=== PATIENT | male | born 1965 | race Two or more races ===

== ENCOUNTER 2024-09-21 07:03 | Day surgery (SDC) | payer OTHER ==
[~2024-09-21] VITALS: Ht 180.3 cm; Wt 117.9 kg
[2024-09-21] VITALS (9 sets, daily range): BP systolic 103–116; BP diastolic 65–71; PULSE 60–65; RESP 11–16; TEMP 98.6; O2SAT 94–96
[~2024-09-21 07:03] MED LIST: AMLO1TAB23 PO; ASPI1TAB19 PO; CLON0.1T PO; HYDR25TA4 PO; LISI40TA16 PO; METO200T42 PO; NITR0.4S29 SL; SPIR50TA5 PO
[2024-09-21] MEDS: IODIXANOL 320MG/ML 100ML BTL IV ONE ×2 (07:28→08:13)
[2024-09-21] MEDS: VERAPAMIL 2.5MG/ML INJ 2ML VIAL IV ONE (07:31)
[2024-09-21] MEDS: LIDOCAINE 2%HCL (LOCAL ANESTH.) INJ 20ML MDV ONE (07:31)
[2024-09-21] MEDS: MIDAZOLAM HCL 2MG/2ML 2ml VIAL (1mg/ml) ONE (07:31)
[2024-09-21] MEDS: HEPARIN SODIUM (PORCINE) 5000 UNITS/ML 1ML VIAL ONE (07:31)
[2024-09-21] MEDS: fentaNYL CITRATE 100 MCG/2 ML VL ONE (07:31)
[2024-09-21] MEDS: ANGIOMAX 250 MG VIAL IV ONE (07:31)
[2024-09-21] MEDS: SODIUM CHL 0.9% 50 ML ONE (07:32)
[2024-09-21] MEDS: NITROGLYCERIN 50MG/250ML 250 ML IV ONE (07:35)
--- NOTE | 2024-09-21 09:19 | DVHOP2 ---
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 PREOPERATIVE DIAGNOSES: severe chf, r/o ICM cad POSTOP DIAGNOSIS: mild cad DESCRIPTION OF PROCEDURE: The patient or appropriate family signed informed consent understanding the risks, benefits and alternatives of the procedure, they wished to proceed. The patient was brought to the cardiac tin can laborer in n.p.o. state. The patient was prepped in a sterile fashion. Sedation was used per cardiac cath protocol. I administered 2 mL of 2% lidocaine to the right wrist. With an antegrade front wall puncture. I cannulated the right radial artery and placed a 6-[place] Glidesheath slender. Next, an intra-arterial spasmolytic was administered. Next, a - 5RF rench [place] catheter an JR4 and were used for coronary angiogram and LVEDP measurement and pressure pullback. At the completion of procedure, all guides and wires were removed, and there were no immediate complications. FINDINGS: RCA: very large ectatic essel off the right sinus of Valsalva, there is no severe flow limiting stenosis. 40% prox pDA lesion noted LEFT MAIN: large size left main, it bifurcates into LAD and circumflex. no stenosis CIRCUMFLEX: Moderate caliber vessel coming off the left main with no flow limiting stenosis. LAD: LAD is a moderate caliber vessel coming of the left main. mid LAD has a 40-50% focal stenosis. LVEDP of 16 mmhg CONCLUSIONS: 1. mild cad 2. mainly NICM PLAN: Aggressive risk factor modification and medical management for the patient. BRIGID AHN MD Sep 21, 2024 09:19
== END 2024-09-21 11:42 | disposition home or self-care (01) ==
LOC: CATH 07:03
PROVIDERS: ATTEND Internal Medicine
DX: I50.9 Heart failure, unspecified (principal); I25.10 Atherosclerotic heart disease of native coronary artery without angina pectoris; Z79.82 Long term (current) use of aspirin; Z79.899 Other long term (current) drug therapy
CPT/HCPCS: 93458; C1769; C1894; J1644; J2250; J3010; J7030; Q9967; 99152